=== PATIENT | female | born 1955 | race Caucasian/White ===

== ENCOUNTER 2017-03-14 17:08 | Emergency (ER) | payer SELFPAY ==
[2017-03-14 17:15] VITALS: BP 133/79; PULSE 63; TEMP 97.8; BMI 29.7
--- NOTE | 2017-03-14 18:42 | PDOC ---
History of Present Illness - General Chief Complaint: Pain Stated Complaint: PAIN Time Seen by Provider: 03/14/17 18:22 History Source: Patient Exam Limitations: No Limitations - History of Present Illness Initial Comments: 03/14/17 18:48 My chief complaint: Right lateral lower leg tenderness with tingling of toes intermittently for 3 weeks History of present illness: Patient is a 61-year-old female with no significant medical history here today complaining of pain in right lateral calf with tingling of toes 3 weeks intermittently. Patient reports that she also has tingling of her right foot and toes intermittently. Patient adamantly denies no back pain or radiation of pain from back down right leg or buttocks. Patient denies any injury to right leg. Patient denies any recent travel. Patient denies any history of DVTs or PEs or any clotting disorder. Patient denies any recent surgeries. Patient reports the pain is worse in her right lateral calf with walking and is currently a 5 out of 10. Right lateral calf looks larger than left calf. 03/14/17 18:50 Timing/Duration: intermittent (for 2-3 weeks ) Severity: moderate Associated Symptoms: reports: other (tingling of rt. toes) Past History - Past Medical History Allergies/Adverse Reactions: Allergies Allergy/AdvReac Type Severity Reaction Status Date / Time No Known Allergies Allergy Verified 03/14/17 17:15 Home Medications: Ambulatory Orders Naproxen [Naprosyn -] 500 mg PO BID PRN #14 tablet MDD 2 03/14/17 Diabetes: No HTN: No Hypercholesterolemia: No - Psycho/Social/Smoking Cessation Hx Anxiety: No Suicidal Ideation: No Smoking History: Never smoked Hx Alcohol Use: No Drug/Substance Use Hx: No Substance Use Type: None Review of Systems - Review of Systems Able to Perform ROS?: Yes Constitutional: No: Symptoms Reported HEENTM: No: Symptoms Reported Respiratory: No: Symptoms reported Cardiac (ROS): No: Symptoms Reported ABD/GI: No: Symptoms Reported : No: Symptoms Reported Musculoskeletal: Yes: Muscle Pain (rt. calf for 3 weeks intermittent). No: Back Pain Integumentary: No: Symptoms Reported Neurological: Yes: Tingling (toes intermittent, foot rt. ) *Physical Exam - Vital Signs Last Vital Signs Temp Pulse Resp BP Pulse Ox 97.8 F 63 20 133/79 98 03/14/17 17:10 03/14/17 17:10 03/14/17 17:10 03/14/17 17:10 03/14/17 17:10 - Physical Exam General Appearance: Yes: Appropriately Dressed Respiratory/Chest: positive: Lungs Clear, Normal Breath Sounds Cardiovascular: positive: Regular Rhythm, Regular Rate, S1, S2 Vascular Pulses: Dorsalis-Pedis (R): 4+ Musculoskeletal: positive: Normal Inspection. negative: CVA Tenderness, CVA Tenderness (R), CVA Tenderness (L), Decreased Range of Motion, Muscle Spasm, Vertebral Tenderness Extremity: positive: Normal Capillary Refill, Normal Range of Motion (rt, knee, ankle/ toes ), Tender (rt. lateral calf ), Swelling (rt. lateral calf slightly larger than left ), Erythema (rt. lateral calf dime size area of erythema non scaley or vesicular ) Integumentary: positive: Other (see under extremity) Neurologic: positive: Normal Response, Motor Strength 5/5 (b/l legs), Respond to painful stimul (rt. foot, toes), Responsive. negative: Sensory Deficit Deep Tendon Reflexes: Ankle (L): 4+, Ankle (R): 4+, Knee (L): 4+, Knee (R): 4+ Medical Decision Making - Medical Decision Making 03/14/17 18:50 Patient is a 61-year-old female with no significant medical history here today complaining of pain in right lateral calf with tingling of toes 3 weeks intermittently. Patient reports that she also has tingling of her right foot and toes intermittently. Patient adamantly denies no back pain or radiation of pain from back down right leg or buttocks. Patient denies any injury to right leg. Patient denies any recent travel. Patient denies any history of DVTs or PEs or any clotting disorder. Patient denies any recent surgeries. Patient reports the pain is worse in her right lateral calf with walking and is currently a 5 out of 10. Right lateral calf looks larger than left calf. right calf lateral pain r/o DVT rt. foot/toes intermittent tingling PLAN: venous doppler rt. leg there is no evidence of deep venous thrombosis in the right lower extremity. No Mccormack's cyst is identified in the popliteal fossa per Dr. Jackson 03/14/17 19:53 *DC/Admit/Observation/Transfer Diagnosis at time of Disposition: Lower extremity neuropathy Qualifiers: Laterality: right Qualified Code(s): G57.91 - Unspecified mononeuropathy of right lower limb Lower extremity pain Qualifiers: Laterality: right Qualified Code(s): M79.604 - Pain in right leg - Discharge Dispostion Disposition: HOME Condition at time of disposition: Stable - Referrals Referrals: Aurea Turner MD [Primary Care Provider] - Jackson Reyes MD [Staff Physician] - - Patient Instructions Additional Instructions: Follow Up with your primary care provider within the next 2 days follow up with orthopedist as soon as possible for further evaluation Return to emergency room if symptoms worsen or new symptoms develop Elevate your right leg as much as possible Patient voiced understanding of discharge instructions and all questions were answered.
[2017-03-14] MEDS ORDERED: NAPROXEN 500 MG TABLET (FP) PO ONE (19:56)
[2017-03-14] MEDS ORDERED: NAPROXEN 500 MG TABLET (FP) ONE (20:01)
== END 2017-03-14 20:03 | disposition home or self-care (01) ==
LOC: JERFT 17:08
DX: M54.32 Sciatica, left side (principal)
CPT/HCPCS: 93971-TC; 99281-25

== ENCOUNTER 2017-03-15 15:15 | Emergency (ER) | payer SELFPAY ==
[2017-03-15 15:21] VITALS: BP 133/68; PULSE 73; TEMP 98; BMI 31.6
--- NOTE | 2017-03-15 15:42 | PDOC ---
Attending Attestation - Resident Resident Name: Emperatriz Romo - ED Attending Attestation I have performed the following: I have examined & evaluated the patient, The case was reviewed & discussed with the resident, I agree w/resident's findings & plan, Exceptions are as noted - HPI HPI: 03/15/17 15:42 The patient is a 61-year-old female who presents to the emergency department with 3 weeks of right lateral foot and lower leg pain accompanied by occasional paresthesias when she ambulates. She denies back pain. She denies bladder or bowel incontinence or retention. She denies fever. She denies trauma. 03/15/17 15:58 - Physicial Exam PE: 03/15/17 15:41 She is well-appearing and in no acute distress Vitals noted There are no objective sensory or motor findings in the lower extremities Specifically, her ankle dorsiflexion and plantar flexion is 5 out of 5 Her knee flexion and extension is 5 out of 5 Her hip flexion and extension is 5 out of 5 Her toe dorsiflexion and plantar flexion is 5 out of 5 There are no deficits to light touch, temperature and vibration in the bilateral lower extremities She has very subtle decreased patellar reflex on the right as compared to the left There is no saddle anesthesia 03/15/17 15:57 03/15/17 16:01 - Medical Decision Making 03/15/17 16:01 She is well-appearing and in no acute distress There is no evidence of spinal cord compression or cauda equina syndrome Clinical impression: Suspected sciatica Will refer to Dr. Mayfield for further evaluation. I discussed the physical exam findings, ancillary test results and final diagnoses with the patient. I answered all of the patient's questions. The patient was satisfied with the care received and felt comfortable with the discharge plan and treatment plan. The patient will call their primary care physician within 24 hours to arrange follow-up and will return to the Emergency Department with any new, persistent or worsening symptoms.
[2017-03-15] MEDS ORDERED: diazePAM 5 MG TABLET PO ONE ×2 (16:00→16:02)
--- NOTE | 2017-03-15 16:00 | PDOC ---
History of Present Illness - General Chief Complaint: Pain Stated Complaint: PAIN IN LEG History Source: Patient Exam Limitations: Language Barrier - History of Present Illness Initial Comments: 03/15/17 16:14 This is a 61 yo F with no PMH who returns to ER after yesterdays visit due to progression of L leg pain. Yesterday her calf hurt and felt numb when she walked only (this has been happening for 2 days). she had a negative duplex and was dcd on naproxen. Today she had pain in the back of her leg from buttock to foot and numbness in the whole circumferential leg w/o saddle anesthesia. Her leg also feels weak. She reports prior back pain years ago which as treated with an injection and has since resolved. She denies back injury or recent heavy lifting. She denies trouble initiating urination or defecation or urinary/ bowel incontinence. She currently denies back pain. Past History - Past Medical History Allergies/Adverse Reactions: Allergies Allergy/AdvReac Type Severity Reaction Status Date / Time No Known Allergies Allergy Verified 03/15/17 15:18 Home Medications: Ambulatory Orders Naproxen [Naprosyn -] 500 mg PO BID PRN #14 tablet MDD 2 03/14/17 Diazepam [Valium] 5 mg PO Q8H PRN #10 tablet MDD 3 03/15/17 Naproxen [Naprosyn -] 500 mg PO BID #14 tablet 03/15/17 Diabetes: No HTN: No Hypercholesterolemia: No - Psycho/Social/Smoking Cessation Hx Anxiety: No Suicidal Ideation: No Smoking History: Never smoked Have you smoked in the past 12 months: No Information on smoking cessation initiated: No Hx Alcohol Use: No Drug/Substance Use Hx: No Substance Use Type: None Review of Systems - Review of Systems Able to Perform ROS?: Yes Is the patient limited Romanian proficient: Yes Constitutional: Yes: Weakness (l leg ). No: Chills, Fever HEENTM: No: Blurred Vision, Nose Congestion, Tinnitus, Throat Pain Respiratory: No: Cough, Orthopnea, Shortness of Breath, Hemoptysis Cardiac (ROS): No: Chest Pain, Irregular Heart Rate, Lightheadedness ABD/GI: No: Abdominal Distended, Constipated, Diarrhea, Nausea, Vomiting, Abdominal cramping : No: Dysuria, Flank Pain Integumentary: No: Bruising, Rash Neurological: Yes: Numbness, Paresthesia, Weakness. No: Headache, Seizure, Unsteady Gait, Ataxia, Dizziness Psychiatric: No: Anxiety, Depression Endocrine: No: Change in Weight Hematologic/Lymphatic: No: Anemia, Blood Clots, Easy Bleeding, Easy Bruising All Other Systems: Reviewed and Negative *Physical Exam - Vital Signs Last Vital Signs Temp Pulse Resp BP Pulse Ox 98 F 73 18 133/68 100 03/15/17 15:18 03/15/17 15:18 03/15/17 15:18 03/15/17 15:18 03/15/17 15:18 - Physical Exam Comments: 03/15/17 16:20 General: aaox3, NAD Musculoskeletal: no peripheral edema, no lower back bony tenderness, no LLE cord , erythema, mass, adenopathy Neuro: LE and UE strength 5/5 b/l, sensation intact b/l, no saddle anesthesia, L patellar reflex 1+, R patellar reflex 2+, bicep reflexes 1+ b/l, babinsky negative b/l Medical Decision Making - Medical Decision Making 03/15/17 16:23 patient presents with clinical picture most consistent with pinched LLE nerve, possibly due to spinal issue or due to sciatica. Patient recommended to continue taking naproxen and prescribed short course of daily vailum. If symptoms do not resolve, she was referred to Dr Mayfield. *DC/Admit/Observation/Transfer Diagnosis at time of Disposition: Lower extremity pain, Sciatic leg pain - Discharge Dispostion Admit: No - Prescriptions Prescriptions: Naproxen [Naprosyn -] 500 mg PO BID #14 tablet Diazepam [Valium] 5 mg PO Q8H PRN #10 tablet MDD 3 PRN Reason: Pain - Referrals Referrals: Jung Carballo MD [Primary Care Provider] - Raji Mayfield MD [Staff Physician] - - Patient Instructions Printed Discharge Instructions: Sciatica Additional Instructions: your leg pain is due to a pinched nerve. The problem is either in your back or in a muscle that is pressing on a nerve. Please continue taking Naproxen and Valium (this relaxes muscles) for 5 days. Be careful not to drive while taking valium. If symptoms do not go away, see Dr Mayfield, who is a nerve/back pain specialist. You can also go to [facility] is you have insurance issues. Return to hospital if symptoms worsen. Print Language: MOROCCAN
== END 2017-03-15 16:40 | disposition home or self-care (01) ==
LOC: JER 15:15
DX: M79.605 Pain in left leg (principal); M54.32 Sciatica, left side
CPT/HCPCS: 99282-25

== ENCOUNTER 2025-07-02 16:00 | Inpatient (IN) | payer OTHER ==
[2025-07-02 16:09] VITALS: BMI 28.9
[2025-07-02 17:13] LABS: INR 1.39 (0.83-1.09); PROTHROMBIN TIME (PATIENT) 15.1 SEC (9.7-13.0)
[2025-07-02] MEDS: ONDANSETRON 4 MG/2 ML VIAL IVPUSH ONE (17:13)
[2025-07-02 17:16] LABS: ACTIVATED PTT 18.9 SECONDS (25.2-36.5)
[2025-07-02] MEDS ORDERED: PIPERACILLIN/TAZOB 4.5 GM 4.5 GM/100 ML BAG IVPB ONE (17:16)
[2025-07-02] MEDS ORDERED: VANCOMYCIN 1 GM PREMIX (F) 1 GM/200 ML BAG ONE (17:16)
[2025-07-02] MEDS ORDERED: METOCLOPRAMIDE HCL INJECTION 10 MG/2 ML VIAL ONE (17:16)
[2025-07-02 17:27] LABS: GLUCOSE,RANDOM 89.0 mg/dL (74-106); TOT PROT 7.8 g/dl (6.4-8.2)
[2025-07-02 17:28] LABS: CO2 21.0 mmol/L (21-32)
[2025-07-02 17:30] LABS: ALK PHOS 85.0 U/L (40-150)
[2025-07-02 17:32] LABS: CREATININE 0.66 mg/dL (0.55-1.3); SGOT/AST 58.0 U/L (5-34); SGPT/ALT 38.0 U/L (0-55)
[2025-07-02] MEDS: PIPERACILLIN/TAZOB 4.5 GM 4.5 GM in DEXTROSE 5%-WATER 100 ML IVPB ONE (17:40)
[2025-07-02] MEDS: SODIUM CHLORIDE 0.9% 500 ML INFUS.BAG IV ONE (17:40)
[2025-07-02] MEDS: METOCLOPRAMIDE HCL INJECTION 10 MG/2 ML VIAL IVPUSH ONE (17:54)
[2025-07-02] MEDS: VANCOMYCIN 1,000 MG in DEXTROSE 5%-WATER - 250 ML IVPB ONE (17:54)
[2025-07-02 18:04] LABS: BG HCT 41.0 % (32.4-45.2); VENOUS BASE EXCESS 0.1 mmol/L (-2-2); VENOUS O2 SATURATION 66.9 % (70-80); VENOUS PCO2 38.5 mmHg (38-52); VENOUS PH 7.42 (7.310-7.410)
[2025-07-02 18:05] LABS: ABSOLUTE IMMATURE GRANULOCYTES 0.03 x10^3/uL (0.0-0.031); BASOPHILS # 0.03 x10^3/uL (0.01-0.08); EOSINOPHIL % 0.2 % (0.7-5.8); EOSINOPHILS # 0.02 x10^3/uL (0.04-0.36); MCHC 32.5 g/dl (32.2-35.5); MEAN CELL VOLUME 87.0 fl (79.4-94.8); MEAN PLT VOLUME 10.5 fl (9.4-12.3); MONOCYTE # 0.25 x10^3/uL (0.24-0.86); MONOCYTE % 3.0 % (4.7-12.5); RDW 13.0 % (12.4-16.4)
[2025-07-02 18:06] LABS: URINE APPEARANCE CLEAR; URINE BILIRUBIN NEGATIVE (NEGATIVE); URINE COLOR YELLOW; URINE GLUCOSE (UA) NEGATIVE (NEGATIVE); URINE KETONE NEGATIVE (NEGATIVE); URINE LEUK ESTERASE NEGATIVE (NEGATIVE); URINE NITRITE NEGATIVE (NEGATIVE); URINE PROTEIN NEGATIVE (NEGATIVE); URINE UROBILINOGEN 0.2 mg/dL (0.2-1.0)
[2025-07-02 18:55] LABS: HCV DIAGNOSTIC IN-HOUSE W/RFLX NON-REACTIVE (NONREACTIVE); HIV INTERPRETATION NEGATIVE (NEGATIVE)
[2025-07-02] MEDS ORDERED: ACETAMINOPHEN 325 MG TABLET (FP) PO PRN (20:53)
[2025-07-02] MEDS: CEFTRIAXONE 2 GM in DEXTROSE 5%-WATER 100 ML IVPB SCH (22:13)
[2025-07-02] MEDS: ACETAMINOPHEN 325 MG TABLET (FP) PO PRN (22:13)
[2025-07-03 08:16] LABS: MCHC 31.9 g/dl (32.2-35.5); MEAN CELL VOLUME 88.3 fl (79.4-94.8); MEAN PLT VOLUME 11.7 fl (9.4-12.3); RDW 13.1 % (12.4-16.4)
[2025-07-03 08:32] LABS: GLUCOSE,RANDOM 82.0 mg/dL (74-106)
[2025-07-03 08:33] LABS: TOT PROT 6.3 g/dl (6.4-8.2)
[2025-07-03 08:34] LABS: CO2 22.0 mmol/L (21-32)
[2025-07-03 08:35] LABS: ALK PHOS 84.0 U/L (40-150)
[2025-07-03 08:38] LABS: CREATININE 0.8 mg/dL (0.55-1.3); SGOT/AST 28.0 U/L (5-34); SGPT/ALT 36.0 U/L (0-55)
[2025-07-03] MEDS ORDERED: ENOXAPARIN NA (PORCINE) 30 MG/0.3 ML DISP.SYRIN SQ SCH (10:00)
[2025-07-03] MEDS: amLODIPine BESYLATE 5 MG TABLET (FP) PO SCH (10:42)
[2025-07-03] MEDS: ENOXAPARIN NA (PORCINE) 40 MG/0.4 ML DISP.SYRIN SQ SCH (10:42)
[2025-07-03] MEDS ORDERED: ONDANSETRON 4 MG/2 ML VIAL IVPUSH PRN (11:32)
[2025-07-03 20:02] LABS: GLUCOSE,RANDOM 104.0 mg/dL (74-106)
[2025-07-03 20:03] LABS: TOT PROT 6.7 g/dl (6.4-8.2)
[2025-07-03 20:04] LABS: CO2 24.0 mmol/L (21-32)
[2025-07-03 20:05] LABS: ALK PHOS 84.0 U/L (40-150)
[2025-07-03 20:08] LABS: CREATININE 0.76 mg/dL (0.55-1.3); SGOT/AST 33.0 U/L (5-34); SGPT/ALT 37.0 U/L (0-55)
[2025-07-04 06:15] VITALS: RESP 18
[2025-07-04 07:37] LABS: ABSOLUTE IMMATURE GRANULOCYTES 0.02 x10^3/uL (0.0-0.031); BASOPHILS # 0.03 x10^3/uL (0.01-0.08); EOSINOPHIL % 4.1 % (0.7-5.8); EOSINOPHILS # 0.22 x10^3/uL (0.04-0.36); MCHC 32.7 g/dl (32.2-35.5); MEAN CELL VOLUME 86.6 fl (79.4-94.8); MEAN PLT VOLUME 10.3 fl (9.4-12.3); MONOCYTE # 0.49 x10^3/uL (0.24-0.86); MONOCYTE % 9.1 % (4.7-12.5); RDW 12.6 % (12.4-16.4)
[2025-07-04 09:55] VITALS: BP 104/60; PULSE 73; TEMP 98.2
== END 2025-07-04 10:54 | disposition home or self-care (01) | DRG 724 ==
LOC: JER 16:00 → JERBED 20:16 → J7W 21:28
PROVIDERS: ADMIT Student in an Organized Health Care Education/Training Program; ATTEND Nurse Practitioner
DX: R78.81 Bacteremia (principal); I10 Essential (primary) hypertension
CPT/HCPCS: 36415; 71045-TC-FY; 74177-TC; 80053; 81003; 82803; 83605; 83735; 84100; 85025; 85027; 85610; 85730; 86803; 86850; 86900; 86901; 87040; 87086; 87389; 93005; 93010; 99291; Q9967